=== PATIENT | male | born 1985 | race Caucasian/White ===

== ENCOUNTER 2020-01-22 04:00 | Emergency (ER) | payer BC ==
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
[2020-01-22] MEDS: Tetracaine HCl/PF 0.5% 4 ML Bottle EYERT STA (04:38)
[2020-01-22] MEDS: Amoxicillin/Clavulanate K 875-125 MG Tab PO ONE (04:42)
== END 2020-01-22 04:50 | disposition home or self-care (01) ==
LOC: MW.ED 04:00
DX: H66.91 Otitis media, unspecified, right ear (principal)
CPT/HCPCS: 99282; A9270

== ENCOUNTER 2022-09-03 11:41 | Emergency (ER) | payer SELFPAY ==
[2022-09-03 13:42] LABS: CORONAVIRUS COVID-19 NAA POSITIVE (NEGATIVE); INFLUENZA A NAA NEGATIVE (NEGATIVE); INFLUENZA B NAA NEGATIVE (NEGATIVE)
[2022-09-03] MEDS ORDERED: Ibuprofen 600 MG Tab PO ONE (14:11)
== END 2022-09-03 15:29 | disposition home or self-care (01) ==
LOC: MW.ED 11:41
DX: U07.1 COVID-19 (principal)
CPT/HCPCS: 0240U; 87651; 99283; A9270

== ENCOUNTER 2022-11-01 18:21 | Emergency (ER) | payer BC ==
[2022-11-01 20:57] LABS: BLOOD UREA NITROGEN,BUN 14 mg/dL (7.0-18.0); CARBON DIOXIDE,CO2 24.4 mmol/L (21.0-32.0); CHLORIDE,CL 104 mmol/L (98-107); ESTIMATED GFR 118 mL/min (>60); GLUCOSE RANDOM 80 mg/dL (74-106); POTASSIUM,K 4.6 mmol/L (3.5-5.1); SODIUM,NA 139 mmol/L (136-148)
== END 2022-11-01 21:31 | disposition home or self-care (01) ==
LOC: MW.ED 18:21
DX: R55 Syncope and collapse (principal)
CPT/HCPCS: 36415; 70450; 70450-26; 72125; 72125-26; 80053; 83735; 84439; 84443; 84484; 85025; 93005; 99284

== ENCOUNTER 2022-11-06 19:24 | Emergency (ER) | payer BC | END 2022-11-06 21:02 | disposition home or self-care (01) | LOC: MW.ED 19:24 | DX: H66.92 Otitis media, unspecified, left ear (principal) | CPT/HCPCS: 99282 ==

== ENCOUNTER 2025-02-21 08:36 | Emergency (ER) | payer BC | END 2025-02-21 09:57 | disposition home or self-care (01) | LOC: MW.ED 08:36 | DX: Z77.098 Contact with and (suspected) exposure to other hazardous, chiefly nonmedicinal, chemicals (principal) | CPT/HCPCS: 71046; 71046-26; 99283; 99284 ==